=== PATIENT | female | born 1955 | race Caucasian/White ===

== ENCOUNTER 2016-05-22 09:33 | Day surgery (SDC) | payer MEDICARE, OTHER ==
[~2016-05-22] VITALS: Ht 157.5 cm; Wt 73.0 kg
[~2016-05-22 09:33] MED LIST: LACTATED RINGERS 1,000 ML IV SCH; SODIUM CHLORIDE FLUSH 3 ML SYR IV PRN
[2016-05-22 09:49] VITALS: BP 160/113
[2016-05-22 10:36] LABS: MEAN CORPUSCULAR HEMOGLOBIN 24.9 PG (26.0-34.0); MEAN CORPUSCULAR HGB CONC 32.9 g/dL (31.0-37.0); MEAN PLATELET VOLUME 11.4 FL (6.0-9.5); WHITE BLOOD COUNT 8.27 10^3uL (4.0-11.0)
[2016-05-22 10:46] LABS: ALBUMIN 4.7 g/dL (3.4-5.0); ANION GAP 17.9 MEQ/L (3-15); CALCULATED IONIZED CALCIUM 3.9 mg/dL (3.8-4.6); TOTAL PROTEIN 7.9 g/dL (6.4-8.5)
== END 2016-05-22 10:30 | disposition home or self-care (01) ==
LOC: ASC 09:33 → EDSTATUS 10:00 → ASC 10:30
PROVIDERS: ATTEND Pain Medicine Pain Medicine
DX: M54.9 Dorsalgia, unspecified (principal); G89.29 Other chronic pain; M79.604 Pain in right leg; Z53.09 Procedure and treatment not carried out because of other contraindication; R11.10 Vomiting, unspecified; R50.9 Fever, unspecified; I10 Essential (primary) hypertension
CPT/HCPCS: 36415; 80053; 85027

== ENCOUNTER → 2016-05-29 | Outpatient (CLI) | payer MEDICARE ==
[2016-05-29 10:34] LABS: MEAN PLATELET VOLUME 11.3 FL (6.0-9.5); PLATELET COUNT 162 10^3uL (150-450); WHITE BLOOD COUNT 4.51 10^3uL (4.0-11.0)
[2016-05-29 10:37] LABS: MEAN CORPUSCULAR HEMOGLOBIN 25.1 PG (26.0-34.0); MEAN CORPUSCULAR VOLUME 78 FL (80-100)
[2016-05-29 10:46] LABS: ANISOCYTOSIS SLIGHT; BAND NEUTROPHILS % 1 % (0-6); EOSINOPHILS % 2 % (0-4); LYMPHOCYTES # 1.3 #; MONOCYTES # 0.2 #; MONOCYTES % 5 % (3-11); RBC MORPH SEE REFERENCE (NORMAL); SEGMENTED NEUTROPHILS % 61 % (51-67); TOTAL CELLS COUNTED 100
== END ==
LOC: LAB 10:11
PROVIDERS: ATTEND Family Medicine
DX: J44.9 Chronic obstructive pulmonary disease, unspecified (principal)
CPT/HCPCS: 36415; 85007; 85027; 86140; 87486; 87581; 87633; 87798

== ENCOUNTER → 2016-05-30 | Outpatient (CLI) | payer MEDICARE, OTHER | LOC: RAD 09:37 | PROVIDERS: ATTEND Family Medicine | DX: J44.9 Chronic obstructive pulmonary disease, unspecified (principal); R91.1 Solitary pulmonary nodule | CPT/HCPCS: 71270; Q9967 ==

== ENCOUNTER 2016-06-26 08:55 | Day surgery (SDC) | payer MEDICARE, OTHER ==
[2016-06-26] VITALS (8 sets, daily range): BP systolic 98–114; BP diastolic 53–75
[~2016-06-26] VITALS: Ht 157.5 cm; Wt 75.0 kg
[~2016-06-26 08:55] MED LIST changes: -LACTATED RINGERS 1,000 ML IV SCH; -SODIUM CHLORIDE FLUSH 3 ML SYR IV PRN; +SODIUM CHLORIDE FLUSH 3 ML SYR ONE
[2016-06-26] MEDS ORDERED: ACETAMINOPHEN 500 MG TAB (TYLENOL) ONE (10:43)
[2016-06-26] MEDS ORDERED: ACETAMINOPHEN 500 MG TAB (TYLENOL) PO PRN (10:55)
[2016-06-26] MEDS ORDERED: oxycODONE/ACETAMINOPHEN 10MG-325 MG (PERCOCET-10) TABLET PO ONE (13:00)
[2016-06-26] MEDS ORDERED: ONDANSETRON 2 MG/ML (Z0FRAN) 2 ML VIAL IV ONE (13:00)
[2016-06-26] MEDS ORDERED: NS IV 500 ML 500 ML IV ONE (13:00)
[2016-06-26] MEDS ORDERED: SODIUM CHLORIDE FLUSH 3 ML SYR ONE (13:05)
--- NOTE | 2016-06-26 13:10 | NUR ---
1245 pt states that h/a getting worse now on a scale of 8 [address] a 0-[address] Suárez updated and orders received for the hospitalist to come down and see patient. Daniel Rudolph notified. Orders received 1255 Daniel Rudolph in and visited with patient. Fluids started and meds given per order
== END 2016-06-26 14:35 | disposition home or self-care (01) ==
LOC: ASC 08:55 → EDSTATUS 10:00 → ASC 14:35
PROVIDERS: ATTEND Family Medicine
DX: M51.36 Other intervertebral disc degeneration, lumbar region (principal); G89.29 Other chronic pain; G97.1 Other reaction to spinal and lumbar puncture; M62.838 Other muscle spasm; E11.9 Type 2 diabetes mellitus without complications; E78.5 Hyperlipidemia, unspecified; I10 Essential (primary) hypertension; R91.1 Solitary pulmonary nodule; K21.9 Gastro-esophageal reflux disease without esophagitis; F32.9 Major depressive disorder, single episode, unspecified; Y84.4 Aspiration of fluid as the cause of abnormal reaction of the patient, or of later complication, without mention of misadventure at the time of the procedure; Z79.891 Long term (current) use of opiate analgesic; Z79.84 Long term (current) use of oral hypoglycemic drugs; Z98.1 Arthrodesis status; Z87.891 Personal history of nicotine dependence
CPT/HCPCS: 36415; 62304; 72132; 85610; 85730; A9270; J2405; J7040; Q9966; Q9967

== ENCOUNTER → 2016-08-10 | Outpatient (CLI) | payer MEDICARE, OTHER ==
[~2016-08-10] MED LIST changes: +ADV500-14; +ALB0.5V INH; +ALLO100T PO; +ATOR20TA PO; +AZTH250C PO; +BLOO1STR MC; +BSP10T; +BUSP15TA55 PO; +CEFD300C PO; +CELE50CA; +CHLO500T4 PO; +CLON0.1T PO; +DICL100G13 TOP; +EZET10TA5 PO; +FISH12002 PO; +FISH1CAP15 PO; +FLUT50DI INH; +FURO40TA4 PO; +INSU100V2; +INSU100V32; +IPRA4AER INH; +LIRA0.6P2 SC; +LISI2.5T PO; +LSNP10T; +MELO-249 PO; +METF500T4 PO; +METH10TA2 PO; +METH5TAB2 PO; +MONT10TA21 PO; +NF-FLON16G NSEACH; +NFMET1000; +OMEP20TA PO; +OMG1KC PO; +ONDAN4ODT PO; +OXYC10TA7; +OXYC15TA79 PO; +OXYC1TAB12 PO; +OXYC30TA80 PO; +PIOG1TAB PO; +POTA10CA2 PO; +PRD20T PO; +PRV20T PO; +SENN8.6T10 PO; -SODIUM CHLORIDE FLUSH 3 ML SYR ONE; +TIOT18CA IH; +TIZA4CAP6 PO; +TRAZ-28 PO; +VENL75TA2 PO; +provastatin PO
== END ==
LOC: EMS 15:18
DX: Z53.20 Procedure and treatment not carried out because of patient's decision for unspecified reasons (principal)